=== PATIENT | female | born 1945 | race Caucasian/White ===

== ENCOUNTER 2017-05-16 20:17 | Emergency (ER) | payer MEDICARE ==
--- NOTE | 2017-05-16 20:36 | CT REPORT ---
HISTORY: Stroke. COMPARISON: None. TECHNIQUE: Dose reduction technique was utilized. Axial non-contrast images obtained from skull vertex through foramen magnum. Coronal reformats are obtained and reviewed. FINDINGS: BRAIN: No atrophy. No acute intracranial hemorrhage. No mass effect or hydrocephalus. No CT evidence of infarction. BONES AND EXTRACRANIAL SOFT TISSUES: The orbits are unremarkable. The paranasal sinuses and mastoid a ir cells are clear. The calvarium is intact. IMPRESSION: Normal head CT. Critical results (stroke alert) were communicated to ISHAAN LARKIN MD at 05/16/2017 8:31 PM. Final Electronic Signature: This report was electronically signed by Lisandro Bellamy MD on 05/16/2017 8:33 PM. bcox /
[2017-05-16] MEDS ORDERED: LORazepam 0.5 MG TABLET ONE (20:47)
[2017-05-16] MEDS ORDERED: NORMAL SALINE 500 ML IV ONE ×2 (20:47→22:15)
[2017-05-16 21:00] LABS: BLOOD UREA NITROGEN 21 mg/dL (7-17); CALCIUM 9.2 mg/dL (8.4-10.2); CHLORIDE 100 mmol/L (98-107); EST GLOMERULAR FILTRATION RATE 52 mL/min; GLUCOSE 111 mg/dL (70-100); POTASSIUM 3.3 mmol/L (3.5-5.1); SODIUM 133 mmol/L (137-145)
[2017-05-16 21:03] LABS: BASOPHIL# 0.1 X 10^3uL (0.0-0.1); EOSINOPHILS 1.7 % (0.0-6.0); EOSINOPHILS# 0.1 X 10^3uL (0.0-0.4); HEMOGLOBIN 13.2 g/dL (12.0-16.0); LYMPHOCYTES 27.3 % (20.0-40.0); LYMPHOCYTES# 2.4 X 10^3uL (0.8-3.8); MEAN CELL VOLUME 88.8 fL (80.0-100.0); MEAN CORPUS. HGB CONCENTRATION 34.7 g/dL (32.0-36.0); MEAN CORPUSCULAR HEMOGLOBIN 30.8 pg (29.0-35.0); MEAN PLATELET VOLUME 8.5 fL (7.4-10.4); MONOCYTES 8.8 % (2.0-10.0); MONOCYTES# 0.8 X 10^3uL (0.2-1.0); NEUTROPHILS 61.2 % (54.0-75.0); NEUTROPHILS# 5.3 X 10^3uL (2.6-6.7); PLATELET COUNT 294 X 10^3uL (130-440); RED BLOOD COUNT 4.28 X 10^6uL (4.20-6.10); RED CELL DISTRIBUTION WIDTH 12.3 % (11.5-14.5); WHITE BLOOD COUNT 8.7 X 10^3uL (3.9-10.7)
[2017-05-16 21:05] LABS: INR 0.7
[2017-05-16 21:18] LABS: TROPONIN I < 0.012 ng/mL (0.00-0.034)
[2017-05-16] MEDS ORDERED: ONDANSETRON HCL 4 MG/2 ML VIAL ONE (21:29)
[2017-05-16] MEDS ORDERED: POTASSIUM EFF 25 MEQ TABLET ONE (22:14)
[2017-05-16] MEDS ORDERED: CIPROFLOXACIN HCL 500 MG TABLET PO ONE (23:53)
--- NOTE | 2017-05-16 23:54 | ER PHYSICIAN DOCUMENTATION ---
Physician Documentation [facility] Name:Kaiser Luciano Age:71 yrs Sex:Female :1945 Arrival Date:05/16/2017 Time:20:17 BedTrauma-A Private MD:Physician, Elysia ED Carlos Mckeon Disposition: 05/16 22:32 Critical Care: not applicable. cd Disposition: 05/16/17 22:33 Discharged to Home/Self Care. Impression: Dehydration - : Altitude Illness, Dizziness - Vertigo, Anxiety Reaction, Bladder Infection (UTI). - Condition is Fair. - Discharge Instructions: BLADDER INFECTION, Female (Adult), DEHYDRATION (6y-Adult), DIZZINESS, Unk Cause, Anguish - ANXIETY REACTION. - Prescriptions for Cipro 250 mg Oral - take 1 tablet by ORAL route every 12 hours for 7 days; 14 tablet. - Medical Reconciliation form form. - Follow up: Private Physician; When: 2 - 3 days; Reason: Recheck today's complaints, Continuance of care. - Problem is new. - Symptoms have improved. - Notes: Drink 2 liters of water or Gatorade every day. Take Cipro 250mg by mouth every 12 hours for 7 days Return to the ER if high fever, chills, back pain or vomiting arise. Take Zofran 4mg under your tongue every 6 hours as needed for nausea or vomiting Do not go to higher elevation.... rest. Avoid alcohol. Tylenol for headache. Descend to lower elevation if symptoms worsen. HPI: 20:20 This 71 yrs old Female presents to ER via EMS with complaints of Altered cd Mental Status. 20:20 The patient presents with agitation, confusion, decreased responsiveness, mild cd dizziness and not feeling right.. Onset: The symptom(s)/episode began/occurred acutely, tonight. Possible causes: Stress, Anxiety, Dehydration, Electrolyte Imbalance, UTI, TIA. Associated signs and symptoms: Pertinent positives: agitation, confusion, dizziness, lightheadedness, nausea, weakness, Anxiety, Pertinent negatives: abdominal pain, chest pain, diaphoresis, diarrhea, headache, nausea, numbness, seizure, shortness of breath, tingling, vomiting. Current symptoms: In the emergency department the patient's symptoms are unchanged from the initial presentation. The patient has not experienced similar symptoms in the past. [place] Has had decreased PO fluids today.. Historical: - Allergies: PENICILLINS; - Home Meds: 1. None - PMHx: None; - PSHx: Knee surgery; eye; - Tetanus: < 10 years. - Ebola Screening: : Patient denies exposure to infectious person. Patient denies travel to an Ebola-affected area in the 21 days before illness onset. . - Immunization history: Flu Vaccine < 1 year. - Social history: Smoking status: Patient states was never smoker of tobacco. Patient uses alcohol only on a social basis. - Code Status:: Full code. ROS: 20:30 Eyes: Negative for injury, pain, redness, discharge, blurry vision and loss of vision. cd ENT: Negative for injury, pain, epistaxis and discharge. Neck: Negative for injury, pain, stiffness and swelling. Cardiovascular: Negative for chest pain, palpitations, edema and pleuritic pain. Respiratory: Negative for shortness of breath, dyspnea on exertion, cough, sputum production, wheezing, hemoptysis and pleuritic chest pain. Abdomen/GI: Negative for abdominal pain, nausea, vomiting, diarrhea, constipation, distension, melena, hematochezia and hematemesis. Back: Negative for injury, pain or muscle spasms. : Negative for injury, bleeding, discharge, dysuria, frequency, urgency and swelling. MS/Extremity: Negative for injury, deformity, edema, calf tenderness, pain or coldness. 20:30 Skin: Negative for injury, rash, itching and discoloration. cd 20:30 Constitutional: Positive for poor PO intake, Negative for chills, fever. 20:30 Neuro: Positive for altered mental status, dizziness, headache, weakness, Negative for gait disturbance, loss of consciousness, numbness, seizure activity, speech changes, syncope, tingling, visual changes. 20:30 Psych: Positive for anxiety, Negative for alcohol dependence. 20:30 All other systems are negative. Exam: Head/Face: Normocephalic, atraumatic. Eyes: Pupils equal round and reactive to light, extra-ocular motions intact. Lids and lashes normal. Conjunctiva and sclera are non-icteric and not injected. Cornea within normal limits. Periorbital areas with no swelling, redness, or edema. ENT: Nares patent. No nasal discharge, no septal abnormalities noted. Tympanic membranes are normal and external auditory canals are clear. Oropharynx with no redness, swelling, or masses, exudates, or evidence of obstruction, uvula midline. Mucous membranes dry Neck: Trachea midline, no thyromegaly or masses palpated, and no cervical lymphadenopathy. Supple, full range of motion without nuchal rigidity, or vertebral point tenderness. No Meningismus. Chest/axilla: Normal chest wall appearance and motion. Nontender with no deformity. No lesions are appreciated. Cardiovascular: Regular rate and rhythm with a normal S1 and S2. No gallops, murmurs, or rubs. Normal PMI, no JVD. No pulse deficits. Respiratory: Lungs have equal breath sounds bilaterally, clear to auscultation and percussion. No rales, rhonchi or wheezes noted. No increased work of breathing, no retractions or nasal flaring. Abdomen/GI: Soft, non-tender, with normal bowel sounds. No distension or tympany. No guarding or rebound. No evidence of tenderness throughout. Back: No spinal tenderness. No costovertebral tenderness. Full range of motion. Skin: Warm, dry with normal turgor. Normal color with no rashes, no lesions, and no evidence of cellulitis. 20:40 MS/ Extremity: Pulses equal, no cyanosis. Neurovascular intact. Full, normal range cd of motion. 20:40 Constitutional: The patient appears alert, awake, non-diaphoretic, non-toxic, well developed, well nourished, anxious, in obvious distress, moderately distressed, restless. 20:40 Neuro: Orientation: is normal, to person, place & time. Mentation: lucid, slow to respond, Memory: is normal, Cranial nerves: CN II- XII are normal as tested, Cerebellar function: is grossly normal, Motor: moves all fours, Sensation: is normal, Gait: not tested. Deep tendon reflexes are normal. Vital Signs: 20:34 BP 142 / 72; Pulse 101; Resp 18; Pulse Ox 89% on R/A; Weight 77.11 kg; Height 5 ft. 9 lb in. (175.26 cm); Pain 0/10; 22:06 BP 152 / 80; Pulse 100; Resp 16; Pulse Ox 95% on R/A; Pain 0/10; rh 23:52 BP 152 / 80; Pulse 101; Resp 16; Pulse Ox 95% on R/A; Pain 0/10; lb 20:34 Body Mass Index 25.10 (77.11 kg, 175.26 cm) lb NIH Stroke Scale Scores: 20:35 NIHSS Score: 0 lb Nathanael Coma Score: 20:40 Eye Response: spontaneous(4). Verbal Response: oriented(5). Motor Response: obeys cd commands(6). Total: 15. MDM: 20:20 Patient medically screened. cd 20:45 Differential Diagnosis: electrolyte abnormality, intracranial bleed, TIA, UTI, volume cd depletion. Data reviewed: vital signs, nurses notes, EMS record, and as a result, I will continue to observe the patient, administer IV fluids, NS bolus, NS maintenence, and Zofran. 22:35 Counseling: I had a detailed discussion with the patient and/or guardian regarding: the cd historical points, exam findings, and any diagnostic results supporting the discharge/admit diagnosis, lab results, radiology results, the need for outpatient follow up, for a recheck, with the patient's primary care provider, to return to the emergency department if symptoms worsen or persist or if there are any questions or concerns that arise at home. 22:35 Response to treatment: the patient's symptoms have markedly improved after treatment, cd the patient's condition has returned to base line, and as a result, I will discharge patient. 05/18 20:35 Data interpreted: Pulse oximetry: on room air is 95 %. Interpretation: normal. 05/16 21:04 Order name: CBC AUTO DIF, MDIF/RMOR IF IND; Complete Time: 21:59 EDMS 05/16 21:08 Interpretation: Normal. 05/16 21:19 Order name: BASIC METABOLIC PANEL; Complete Time: 21:59 EDMS 05/16 21:57 Interpretation: Normal Except: SODIUM 133; POTASSIUM 3.3; BLOOD UREA NITROGEN 21; cd CREATININE 1.1; Hyponatremia, Hypokalemia, Dehydration. 05/16 21:19 Order name: TROPONIN I; Complete Time: 21:59 EDMS 05/16 21:57 Interpretation: Normal. 05/16 21:19 Order name: PROTIME/INR; Complete Time: 21:59 EDMS 05/16 21:57 Interpretation: Normal. 05/17 09:07 Order name: URINE CULTURE; Complete Time: 23:51 EDMS 05/18 23:50 Interpretation: Abnormal: URINE CULTURE >100,000; URINE CULTURE ESCHERICHIA COLI. cd 05/18 10:37 Order name: NEGATIVE SENSITIVITY PANEL; Complete Time: 23:51 EDMS 05/18 23:50 Interpretation: CIPROFLOXACIN <=1. cd 05/16 20:37 Order name: CAT SCAN; HEAD W/O CON [id number]; Complete Time: 21:09 EDMS 05/16 21:09 Interpretation: Normal: Radiologist Reading reviewed by me with Radiologist. Nml Head cd CT. 05/16 20:22 Order name: 12-lead EKG; Complete Time: 20:42 cd 05/16 20:22 Order name: Continuous Cardiac Monitoring; Complete Time: 20:32 cd 05/16 20:22 Order name: I & O; Complete Time: 20:32 cd 05/16 20:22 Order name: IV saline lock X2; Complete Time: 20:32 cd 05/16 20:22 Order name: NIH Stroke Scale; Complete Time: 20:37 cd 05/16 20:22 Order name: NPO; Complete Time: 20:32 cd 05/16 20:22 Order name: Pulse Ox Continuous; Complete Time: 20:32 cd Dispensed Medications: 05/16 20:37 Drug: Ativan 0.5 mg; Route: PO; rh 21:19 Follow up: Response: Anxiety decreased rh 20:37 Drug: NS 0.9% 500 ml; Route: IV; Rate: bolus; Site: right antecubital; rh 23:37 Follow up: IV Status: Completed infusion; IV Intake: 500ml lb 21:18 Drug: Zofran 4 mg; Route: IVP; Infused Over: 2 mins; Site: right antecubital; rh 22:05 Follow up: Response: Nausea is decreased rh 22:05 Drug: NS 0.9% 500 ml; Route: IV; Rate: bolus; Site: right antecubital; rh 23:37 Follow up: IV Status: Completed infusion; IV Intake: 500ml lb 22:05 Drug: Potassium Effervescent Tablet 25 mEq; Route: PO; rh 23:37 Follow up: Response: No adverse reaction lb 23:40 Drug: Cipro 500 mg; Route: PO; lb 23:53 Follow up: Response: Dispensed at discharge. lb 23:54 Drug: Zofran 1 tablet; Route: PO; lb 23:54 Follow up: Response: Pharmacy closed - take home med pack lb Point of Care Testing: Urine Dip: 23:50 pH: 6.0; ; Specific [place]: 1.025; Ketones: Negative; Glucose: Negative; Protein: lb Negative; Leukocytes: Positive; Nitrite: Positive (+) ; Blood: Non Hemolyzed Trace; Bilirubin: Negative ; Urobilinogen: Normal NIH Stroke Scale - NIH Stroke Score Date: 05/16/2017 Time: 20:35 Total Score = 0 1a. Level of Consciousness (LOC) - 0(Alert) 1b. Level of Consciousness (LOC) (Year & Age) - 0(Both) 1c. LOC Commands (Open & Closes Eyes/Music Mixer) - 0(Both) 2. Best Gaze (Lateral Gaze Paresis) - 0(Normal) 3. Visual Field Loss - 0(No visual loss) 4. Facial Palsy - 0(Normal) 5a. Left Arm: Motor (10-second hold) - 0(No drift) 5b. Right Arm: Motor (10-second hold) - 0(No drift) 6a. Left Leg: Motor (5-second hold ? always test supine) - 0(No drift) 6b. Right Leg: Motor (5-second hold ? always test supine) - 0(No drift) 7. Limb Ataxia (finger/nose & heel/meza ? test with eyes open) - 0(Absent) 8. Sensory Loss (pinprick arms/legs/face) - 0(Normal) 9. Best Language: Aphasia (description/naming/reading) - 0(No aphasia) 10. Dysarthria (speech clarity ? read or repeat words) - 0(Normal) 11. Extinction and Inattention (visual/tactile/auditory/spatial/personal) - 0(No abnormality) Initials: lb Signatures: Carlos Hussein MD MD cd Hofsess, Rachel rh Bollock, Lynda lb
--- NOTE | 2017-05-16 23:54 | ER NURSING DOCUMENTATION ---
Nurse's Notes [facility] Name:Kaiser Luciano Age:71 yrs Sex:Female :1945 Arrival Date:05/16/2017 Time:20:17 BedTrauma-A Private MD:Physician, No Diagnosis:Dehydration-: Altitude Illness;Dizziness - Vertigo;Anxiety Reaction;Bladder Infection (UTI) Presentation: 05/16 20:19 Acuity: DAVID 2 rh 20:24 Presenting complaint: Son states: according to family not feeling well all day, lb decreased intake, had episode where she did n ot know where she was. Transition of care: [place]. Notified ED Physician of Dr. Hussein notified. Time Last Known Well for the patient was this am. 20:24 Method Of Arrival: EMS: 410 lb Triage Assessment: 20:28 General: Appears in no apparent distress, Behavior is anxious, appropriate for age. lb Pain: Denies pain. Neuro: Level of Consciousness is awake, alert, Oriented to person, place, time, Dental Hygiene Professor are equal bilaterally Moves all extremities. Speech is normal, Facial symmetry appears normal, Pupils are PERRLA. Respiratory: Airway is patent Trachea midline Respiratory effort is even, unlabored, Respiratory pattern is regular, Breath sounds are clear bilaterally. Historical: - Allergies: PENICILLINS; - Home Meds: 1. None - PMHx: None; - PSHx: Knee surgery; eye; - Tetanus: < 10 years. - Ebola Screening: : Patient denies exposure to infectious person. Patient denies travel to an Ebola-affected area in the 21 days before illness onset. . - Immunization history: Flu Vaccine < 1 year. - Social history: Smoking status: Patient states was never smoker of tobacco. Patient uses alcohol only on a social basis. - Code Status:: Full code. Screenin:36 Infectious Disease Risk None. Abuse screen: Denies threats or abuse. Denies injuries lb from another. Nutritional screening: No deficits noted. Assessment: 20:35 Neuro: Level of Consciousness is awake, alert, Oriented to person, place, time, Dental Hygiene Professor lb are equal bilaterally Moves all extremities. Speech is normal, Facial symmetry appears normal. Cardiovascular: Rhythm is sinus tachycardia. 23:49 Reassessment: up to bathroom with 1 assist. feels steady. ready to go home. lb Vital Signs: 20:34 BP 142 / 72; Pulse 101; Resp 18; Pulse Ox 89% on R/A; Weight 77.11 kg; Height 5 ft. 9 lb in. (175.26 cm); Pain 0/10; 22:06 BP 152 / 80; Pulse 100; Resp 16; Pulse Ox 95% on R/A; Pain 0/10; rh 23:52 BP 152 / 80; Pulse 101; Resp 16; Pulse Ox 95% on R/A; Pain 0/10; lb 20:34 Body Mass Index 25.10 (77.11 kg, 175.26 cm) lb Nathanael Coma Score: 20:40 Eye Response: spontaneous(4). Verbal Response: oriented(5). Motor Response: obeys cd commands(6). Total: 15. NIH Stroke Scale Scores: 20:35 NIHSS Score: 0 lb ED Course: 20:19 Patient arrived in ED. em2 20:19 Triage completed. rh 20:19 Physician, No is Private Physician. em2 20:20 Carlos Hussein MD is Attending Physician. cd 20:23 Dede Batista is Primary Nurse. lb 20:[address] terrell 20:28 Inserted peripheral IV: 20 gauge in right antecubital area and blood collected. rh 20:30 Patient moved back from [address]. terrell 20:30 Oxygen Oxygen administration via nasal cannula @ 2L/min. rh 20:36 Valuables Remains with patient Patient has correct armband on for positive lb identification. Bed in low position. Call light in reach. Side rails up X2. 20:38 EKG done. (by ED staff). Reviewed by Carlos Hussein MD. rh Administered Medications: 20:37 Drug: Ativan 0.5 mg; Route: PO; rh 21:19 Follow up: Response: Anxiety decreased rh 20:37 Drug: NS 0.9% 500 ml; Route: IV; Rate: bolus; Site: right antecubital; rh 23:37 Follow up: IV Status: Completed infusion; IV Intake: 500ml lb 21:18 Drug: Zofran 4 mg; Route: IVP; Infused Over: 2 mins; Site: right antecubital; rh 22:05 Follow up: Response: Nausea is decreased rh 22:05 Drug: NS 0.9% 500 ml; Route: IV; Rate: bolus; Site: right antecubital; rh 23:37 Follow up: IV Status: Completed infusion; IV Intake: 500ml lb 22:05 Drug: Potassium Effervescent Tablet 25 mEq; Route: PO; rh 23:37 Follow up: Response: No adverse reaction lb 23:40 Drug: Cipro 500 mg; Route: PO; lb 23:53 Follow up: Response: Dispensed at discharge. lb 23:54 Drug: Zofran 1 tablet; Route: PO; lb 23:54 Follow up: Response: Pharmacy closed - take home med pack lb Point of Care Testing: Urine Dip: 23:50 pH: 6.0; ; Specific [place]: 1.025; Ketones: Negative; Glucose: Negative; Protein: lb Negative; Leukocytes: Positive; Nitrite: Positive (+) ; Blood: Non Hemolyzed Trace; Bilirubin: Negative ; Urobilinogen: Normal Intake: 23:37 IV: 500ml; Total: 500ml. lb 23:37 IV: 500ml; Total: 1000ml. lb Outcome: 22:33 Discharge ordered by MD. mistry 23:52 Discharged to [facility] 23:52 Condition: stable 23:52 Discharge Assessment: Patient awake, alert and oriented x 3. No cognitive and/or functional deficits noted. Patient verbalized understanding of disposition instructions. Patient awake and alert. Oriented to person, place, time, event, Patient verbalized understanding of disposition instructions. 23:52 Instructed on discharge instructions, follow up and referral plans. 23:52 IV D/Josue 23:53 Patient left the ED. lb 05/17 15:33 Discharge F/U Call: Unable to reach: no answer NIH Stroke Scale - NIH Stroke Score Date: 05/16/2017 Time: 20:35 Total Score = 0 1a. Level of Consciousness (LOC) - 0(Alert) 1b. Level of Consciousness (LOC) (Year & Age) - 0(Both) 1c. LOC Commands (Open & Closes Eyes/Veterinary Inspector) - 0(Both) 2. Best Gaze (Lateral Gaze Paresis) - 0(Normal) 3. Visual Field Loss - 0(No visual loss) 4. Facial Palsy - 0(Normal) 5a. Left Arm: Motor (10-second hold) - 0(No drift) 5b. Right Arm: Motor (10-second hold) - 0(No drift) 6a. Left Leg: Motor (5-second hold ? always test supine) - 0(No drift) 6b. Right Leg: Motor (5-second hold ? always test supine) - 0(No drift) 7. Limb Ataxia (finger/nose & heel/meza ? test with eyes open) - 0(Absent) 8. Sensory Loss (pinprick arms/legs/face) - 0(Normal) 9. Best Language: Aphasia (description/naming/reading) - 0(No aphasia) 10. Dysarthria (speech clarity ? read or repeat words) - 0(Normal) 11. Extinction and Inattention (visual/tactile/auditory/spatial/personal) - 0(No abnormality) Initials: lb Signatures: Carlos Hussein MD MD cd Abbott, Laura Vidal-reg, Yojana-morris em2 Saturnino, Dede Sams lb
[2017-05-16] MEDS ORDERED: ONDANSETRON ODT PREPAC 4 MG TAB.RAPDIS PO ONE (23:57)
== END 2017-05-16 23:53 | disposition home or self-care (01) ==
LOC: EDBD 20:17 → ER 20:17
DX: E86.0 Dehydration (principal); R42 Dizziness and giddiness; R41.82 Altered mental status, unspecified; R51 Headache; R53.1 Weakness; T70.29XA Other effects of high altitude, initial encounter; F41.9 Anxiety disorder, unspecified; N39.0 Urinary tract infection, site not specified; B96.20 Unspecified Escherichia coli [E. coli] as the cause of diseases classified elsewhere; R29.700 NIHSS score 0; Z74.3 Need for continuous supervision
CPT/HCPCS: 70450; 80048; 84484; 85025; 85610; 87077; 87086; 87186; 93005; 93010; 96361; 96374; 99285; A0425; A0427; J2405; J7040